=== PATIENT | male | born 1990 | race Caucasian/White ===

== ENCOUNTER 2016-07-06 14:26 | Emergency (ER) | payer OTHER ==
[2016-07-06 14:52] VITALS: TEMP 98.4
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
[2016-07-06 17:15] VITALS: BP 120/71; PULSE 73; RESP 18; O2SAT 96
== END 2016-07-06 17:15 | disposition home or self-care (01) ==
DX: S02.2XXA Fracture of nasal bones, initial encounter for closed fracture (principal); S00.81XA Abrasion of other part of head, initial encounter; V18.0XXA Pedal cycle driver injured in noncollision transport accident in nontraffic accident, initial encounter; Y93.55 Activity, bike riding